=== PATIENT | female | born 1940 | race Two or more races ===

== ENCOUNTER 2021-09-26 21:57 | Inpatient (IN) | payer OTHER ==
[~2021-09-26] VITALS: Ht 160 cm; Wt 78.2 kg
--- NOTE | 2021-09-26 22:02 | NUR ---
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 PATIENT ALERT AND ORIENTED X3. AMBULATORY PLACED ON BED 03 ON NASAL CANNULA 6L SATTING AT 100%.
--- NOTE | 2021-09-26 22:30 | NUR ---
BLOOD COLLECTED AND SENT TO LAB
[2021-09-26 22:38] LABS: BASOPHILS # (AUTO) 0.1 K/uL (0.0-0.2); BASOPHILS % (AUTO) 0.8 % (0.0-2.0); EOSINOPHILS % (AUTO) 0.1 % (0.0-6.0); HEMATOCRIT 40 % (33-45); HEMOGLOBIN 13.2 g/dL (11.5-14.8); LYMPHOCYTES # (AUTO) 2.1 K/uL (0.8-4.8); MEAN CORPUSCULAR HGB CONC 33 g/dl (31.0-36.0); MEAN CORPUSCULAR VOLUME 92 fL (82-100); MONOCYTES # (AUTO) 0.5 K/uL (0.1-1.30); MONOCYTES % (AUTO) 3.8 % (2.0-12.0); NEUTROPHILS # (AUTO) 9.9 K/uL (1.8-8.9); NEUTROPHILS % (AUTO) 78.3 % (43.0-81.0); PLATELET COUNT (AUTO) 192 K/uL (150-450); RED BLOOD CELL COUNT(AUTO) 4.36 MIL/uL (4.0-5.2); WHITE BLOOD COUNT (AUTO) 12.6 K/uL (4.3-11.0)
--- NOTE | 2021-09-26 22:49 | NUR ---
COVID SWAB DONE AND SENT TO LAB
[2021-09-26 23:11] LABS: CALCIUM, SERUM 9.3 mg/dL (8.5-10.1); CARBON DIOXIDE 29 mmol/L (21-32); CHLORIDE 103 mmol/L (98-107); CREATININE 1.1 mg/dL (0.6-1.3); GLUCOSE 194 mg/dL (74-106); POTASSIUM 3.6 mmol/L (3.5-5.1); SODIUM SERUM 143 mmol/L (136-145); UREA NITROGEN, BLOOD 26 mg/dL (7-18)
--- NOTE | 2021-09-26 23:14 | NUR ---
CALLED [facility] AND REQUESTED SNAP SHOT
[2021-09-26 23:23] LABS: ALANINE AMINOTRANSFERASE 234 U/L (12-78); ALBUMIN 3.4 g/dL (3.4-5.0); ALKALINE PHOSPHATASE 82 U/L (46-116); ASPARTATE AMINOTRANSFERASE 249 U/L (15-37); BILIRUBIN,DIRECT 0.2 mg/dL (0.0-0.2); BILIRUBIN,TOTAL 0.4 mg/dL (0.2-1.0); TOTAL PROTEIN, SERUM 6.7 g/dL (6.4-8.2)
[2021-09-26] MEDS ORDERED: LORAZEPAM INJ 2 MG/ML VIAL ONE (23:36)
[2021-09-26] MEDS ORDERED: ASPIRIN 325 MG TABLET ONE (23:36)
--- NOTE | 2021-09-26 23:38 | NUR ---
CALLED PORSCHE CAMACHO. AWAITING FOR HIS CALL BACK
[2021-09-27] VITALS (15 sets, daily range): BP systolic 110–169; BP diastolic 39–87
[2021-09-27] MEDS ORDERED: ASPIRIN 325 MG TABLET PO ONE
[2021-09-27] MEDS ORDERED: LORAZEPAM INJ 2 MG/ML VIAL IV ONE
--- NOTE | 2021-09-27 | NUR ---
DR URIOSTEGUI ON THE PHONE WITH DR DUMONT FROM [facility]
--- NOTE | 2021-09-27 00:50 | NUR ---
PATIENT AT CT
--- NOTE | 2021-09-27 00:54 | NUR ---
paged [facility] doctor for update
--- NOTE | 2021-09-27 01:14 | NUR ---
GAIL PAGED FOR EXPEDITED CTA READ
[2021-09-27] MEDS ORDERED: HEPARIN SODIUM, PORCINE 5000 UNITS/1 ML VIAL ONE (01:21)
[2021-09-27] MEDS ORDERED: HEPARIN INFUSION/D5W 500 ML IV ONE (01:21)
[2021-09-27] MEDS ORDERED: HEPARIN SODIUM, PORCINE 5000 UNITS/1 ML VIAL IV ONE (01:30)
[2021-09-27] MEDS ORDERED: HEPARIN INFUSION/D5W 500 ML IV PRN ×3 (01:30→05:00)
--- NOTE | 2021-09-27 02:11 | NUR ---
DR URIOSTEGUI ON THE PHONE WITH [facility]
--- NOTE | 2021-09-27 03:16 | NUR ---
DR URIOSTEGUI ON THE PHONE WITH PORSCHE PULLIAM FOR UPDATE
--- NOTE | 2021-09-27 03:19 | NUR ---
PER PORSCHE GROVE DR RECOMMENDED TO KEEP THE PT AND ADMMIT HER AT ICU
--- NOTE | 2021-09-27 04:49 | NUR ---
[facility] SWAB COLLECTED AND SENT TO LAB. PATIENT'S BELONGINGS LIST DONE.
[2021-09-27] MEDS ORDERED: MORPHINE SULFATE INJ 2 MG/ML DISP.SYRIN IV PRN (05:00)
[2021-09-27] MEDS ORDERED: Z GUARD REMEDY 4 OZ OINT TP PRN (05:00)
--- NOTE | 2021-09-27 05:05 | NUR ---
RECEIVED CALL FROM JANET MAN, REGARDING HEPARIN DRIP. HE ORDERED TO CHANGE THE HEPARIN DRIP FROM ACI TO NON-ACI. 18UNITS/KG/HR = [id number] ROUNDED TO NEAREST 12=1888 UNITS/HR. VERIFIED WITH JANET AND HE APPROVED OF DOSING. NOTED AND CHANGED RATE ON PUMP
--- NOTE | 2021-09-27 05:20 | NUR ---
PATIENT RESTING COMFORTABLY NO COMPLAINTS AT THIS TIME.
[2021-09-27] MEDS ORDERED: PARO10TA86 PO (05:31)
[2021-09-27] MEDS ORDERED: FAMO20TA8 PO (05:31)
[2021-09-27] MEDS ORDERED: FLUT16SP (07:57)
[2021-09-27] MEDS ORDERED: PRED5TAB PO (07:57)
[2021-09-27] MEDS ORDERED: FOLI0.4T6 PO (07:57)
[2021-09-27] MEDS ORDERED: ACET-868 PO (07:57)
--- NOTE | 2021-09-27 08:18 | NUR ---
PTT GREATER THAN 170
--- NOTE | 2021-09-27 08:43 | NUR ---
room 258
--- NOTE | 2021-09-27 10:07 | NUR ---
MANAGER ANDROID NOTES RECEIVED PATIENT IN BED A/O X3 FROM ED. VITAL SIGNS ARE FOLLOWS: BP 112/78, HR 90, 19 RR, 97% O2 97.9 TEMPERATURE. NO COMPLAINTS OF PAIN AT THIS TIME. HEPARIN INFUSION PAUSED FOR 1 HOUR PER PROTOCOL. WILL BE RESUMED AT 11AM. PATIENT IS ON NASAL CANNULA 2L. WILL CONTINUE TO MONITOR PATIENT.
[2021-09-27] MEDS ORDERED: predniSONE 10 MG TABLET PO SCH (10:30)
[2021-09-27] MEDS ORDERED: FLUTICASONE PROPIONATE 16 GM BOTTLE NS PRN (11:00)
[2021-09-27] MEDS ORDERED: predniSONE 5 MG TABLET PO SCH (11:00)
[2021-09-27] MEDS: PANTOPRAZOLE 40 MG VIAL IV SCH (12:27)
[2021-09-27] MEDS: PAROXETINE HCL 10 MG TABLET PO SCH (12:27)
[2021-09-27] MEDS: FAMOTIDINE (20 MG) 20 MG TABLET PO SCH ×2 (12:28→17:00)
[2021-09-27] MEDS: FOLIC ACID 1 MG TABLET PO SCH (12:28)
--- NOTE | 2021-09-27 19:50 | NUR ---
RN NOTE PATIENT AWAK, ALERT, AND ORIENTED X3. ABLE TO MAKE NEEDS KNOWN. ON O2 2L VIA NASAL CANNULA. O2 SAT WNL. DENIES ANY PAIN AT THIS TIME. IV ACCESS ON LEFT AC #20 AND RIGHT HAND #18, PATENT AND INTACT. ON HEPARIN DRIP @ 950 UNIT/HR, NO S/S OF ANY BLEEDING. BED LOCKED AND IN LOWEST POSITION. CALL LIGHT WITHIN REACH. ALL NEEDS ANTICIPATED.
[2021-09-28] VITALS (21 sets, daily range): BP systolic 118–164; BP diastolic 58–91
--- NOTE | 2021-09-28 02:00 | NUR ---
RN NOTE APPT 63.8, NO CHANGE PER HEPARIN ORDER PROTOCOL. PT HAS NO S/S OF BLEEDING. ASSISTED PATIENT ON BEDPAN, VOIDED X1.
[2021-09-28] MEDS: HEPARIN INFUSION/D5W 500 ML IV PRN (02:03)
[2021-09-28 04:40] LABS: ALANINE AMINOTRANSFERASE 144 U/L (12-78); ALBUMIN 2.9 g/dL (3.4-5.0); ALKALINE PHOSPHATASE 63 U/L (46-116); ASPARTATE AMINOTRANSFERASE 55 U/L (15-37); BILIRUBIN,DIRECT 0.1 mg/dL (0.0-0.2); BILIRUBIN,TOTAL 0.4 mg/dL (0.2-1.0); CALCIUM, SERUM 8.5 mg/dL (8.5-10.1); CARBON DIOXIDE 31 mmol/L (21-32); CHLORIDE 104 mmol/L (98-107); CREATININE 0.8 mg/dL (0.6-1.3); GLUCOSE 119 mg/dL (74-106); MAGNESIUM 2.1 mg/dL (1.8-2.4); PHOSPHORUS 4.2 mg/dL (2.5-4.9); POTASSIUM 3.8 mmol/L (3.5-5.1); SODIUM SERUM 141 mmol/L (136-145); TOTAL PROTEIN, SERUM 5.9 g/dL (6.4-8.2); UREA NITROGEN, BLOOD 22 mg/dL (7-18)
[2021-09-28 04:55] LABS: BASOPHILS % (AUTO) 0.3 % (0.0-2.0); EOSINOPHILS % (AUTO) 0.2 % (0.0-6.0); HEMATOCRIT 36 % (33-45); HEMOGLOBIN 11.9 g/dL (11.5-14.8); LYMPHOCYTES # (AUTO) 1.2 K/uL (0.8-4.8); LYMPHOCYTES % (AUTO) 14.9 % (20.0-44.0); MEAN CORPUSCULAR HGB CONC 33 g/dl (31.0-36.0); MEAN CORPUSCULAR VOLUME 92 fL (82-100); MONOCYTES # (AUTO) 0.5 K/uL (0.1-1.30); MONOCYTES % (AUTO) 5.5 % (2.0-12.0); NEUTROPHILS # (AUTO) 6.5 K/uL (1.8-8.9); NEUTROPHILS % (AUTO) 79.1 % (43.0-81.0); PLATELET COUNT (AUTO) 160 K/uL (150-450); RED BLOOD CELL COUNT(AUTO) 3.89 MIL/uL (4.0-5.2); WHITE BLOOD COUNT (AUTO) 8.3 K/uL (4.3-11.0)
--- NOTE | 2021-09-28 06:43 | NUR ---
RN NOTE PATIENT RESTING IN BED. ON O2 2L VIA NASAL CANNULA. O2 SAT 97%. IV ACCESS ON LEFT AC #20 AND RIGHT HAND #20, PATENT AND INTACT. ON HEPARIN DRIP @ 950 UNIT/HR, NO S/S OF ANY BLEEDING. ALL NEEDS ATTENDED PROMPTLY. BED LOCKED AND IN LOWEST POSITION. CALL LIGHT WITHIN REACH. WILL ENDORSE TO AM SHIFT.
--- NOTE | 2021-09-28 07:24 | NUR ---
RN OPENING NOTE RECEIVED PT IN BED ASLEEP, PT IS ALERT, AND ORIENTED X3. ABLE TO MAKE NEEDS KNOWN. ON O2 2L VIA NASAL CANNULA. O2 SAT WNL. NO S/S OF RESP DISTRESS AND NO C/O PAIN AT THIS TIME. IV ACCESS ON LEFT AC #20 AND RIGHT HAND #20, PATENT AND INTACT. ON HEPARIN DRIP @ 950 UNIT/HR, NO S/S OF ANY BLEEDING. SAFETY MEASURES IN PLACE. BED LOCKED AND IN LOWEST POSITION. SR UP X3, CALL LIGHT WITHIN REACH. WILL CONTINUE TO MONITOR THROUGHOUT SHIFT.
[2021-09-28] MEDS: PANTOPRAZOLE 40 MG VIAL IV SCH (08:11)
[2021-09-28] MEDS: PAROXETINE HCL 10 MG TABLET PO SCH (08:11)
[2021-09-28] MEDS: FAMOTIDINE (20 MG) 20 MG TABLET PO SCH ×2 (08:12→16:18)
[2021-09-28] MEDS: predniSONE 5 MG TABLET PO SCH (08:12)
[2021-09-28] MEDS: FOLIC ACID 1 MG TABLET PO SCH (08:12)
--- NOTE | 2021-09-28 10:15 | NUR ---
RN NOTES APTT = 66.4 AT 1000. NO CHANGE IN HEPARIN DRIP. WILL CONTINUE AT 950 U/HR.
--- NOTE | 2021-09-28 10:24 | NUR ---
RN NOTES ORDER FOR APTT PUT IN FOR 0700 ON 09/29/21.
--- NOTE | 2021-09-28 18:18 | NUR ---
RN NOTES REPORT GIVEN TO GUILLERMINA DUNNE IN [facility].
--- NOTE | 2021-09-28 19:33 | NUR ---
RN OPENING NOTE RECEIVED PT IN BED AWAKE PT IS ALERT, AND ORIENTED X3. ABLE TO MAKE NEEDS KNOWN. ON O2 2L VIA NASAL CANNULA. O2 SAT WNL. NO S/S OF RESP DISTRESS AND NO C/O PAIN AT THIS TIME. IV ACCESS ON LEFT AC #20 RUNNING HEPARIN DRIP @950ML/HR NO BLEEDING NOTED. PT EDUCATED ON HEPARIN DRIP AND RISK FOR BLEEDING. PT REMINDED THAT NO LAB DRAW SHOULD BE DONE ON THAT ARM. IV ACCESS ALSO ON THE RIGHT HAND #20, PATENT AND INTACT.SAFETY MEASURES IN PLACE. BED LOCKED AND IN LOWEST POSITION. SR UP X3, CALL LIGHT WITHIN REACH. WILL CONTINUE TO MONITOR.
[2021-09-29] VITALS (7 sets, daily range): BP systolic 132–155; BP diastolic 85–96
[2021-09-29] MEDS: HEPARIN INFUSION/D5W 500 ML IV PRN (01:06)
[2021-09-29 06:31] LABS: BASOPHILS % (AUTO) 0.7 % (0.0-2.0); EOSINOPHILS % (AUTO) 1.5 % (0.0-6.0); HEMATOCRIT 37 % (33-45); HEMOGLOBIN 12.4 g/dL (11.5-14.8); LYMPHOCYTES # (AUTO) 1.2 K/uL (0.8-4.8); LYMPHOCYTES % (AUTO) 17.5 % (20.0-44.0); MEAN CORPUSCULAR HGB CONC 34 g/dl (31.0-36.0); MEAN CORPUSCULAR VOLUME 91 fL (82-100); MONOCYTES # (AUTO) 0.4 K/uL (0.1-1.30); MONOCYTES % (AUTO) 5.6 % (2.0-12.0); NEUTROPHILS # (AUTO) 4.9 K/uL (1.8-8.9); NEUTROPHILS % (AUTO) 74.7 % (43.0-81.0); PLATELET COUNT (AUTO) 167 K/uL (150-450); RED BLOOD CELL COUNT(AUTO) 4.04 MIL/uL (4.0-5.2); WHITE BLOOD COUNT (AUTO) 6.6 K/uL (4.3-11.0)
--- NOTE | 2021-09-29 06:38 | NUR ---
RN CLOSING NOTE PT IN BED AWAKE PT IS ALERT, AND ORIENTED X3. ABLE TO MAKE NEEDS KNOWN. ON O2 2L VIA NASAL CANNULA. O2 SAT WNL. NO S/S OF RESP DISTRESS AND NO C/O PAIN AT THIS TIME. IV ACCESS ON LEFT AC #20 RUNNING HEPARIN DRIP @950ML/HR NO BLEEDING NOTED. PT EDUCATED ON HEPARIN DRIP AND RISK FOR BLEEDING. PT REMINDED THAT NO LAB DRAW SHOULD BE DONE ON THAT ARM. IV ACCESS ALSO ON THE RIGHT HAND #20, PATENT AND INTACT.SAFETY MEASURES IN PLACE. BED LOCKED AND IN LOWEST POSITION. SR UP X3, CALL LIGHT WITHIN REACH. WILL ENDORSE CARE TO DAY SHIFT NURSE.
[2021-09-29 07:09] LABS: BILIRUBIN,TOTAL 0.7 mg/dL (0.2-1.0); CALCIUM, SERUM 8.5 mg/dL (8.5-10.1); CREATININE 0.6 mg/dL (0.6-1.3); POTASSIUM 3.4 mmol/L (3.5-5.1); TOTAL PROTEIN, SERUM 5.9 g/dL (6.4-8.2)
[2021-09-29] MEDS ORDERED: PANTOPRAZOLE 40 MG TABLET.DR PO SCH (07:30)
--- NOTE | 2021-09-29 07:30 | NUR ---
RN OPENING NOTES PATIENT AWAKE, A/O X3. NO S/S OF PAIN NOTED AT THIS TIME. PATIENT ON 2L OXYGEN VIA NC, NO DISTRESS OR SHORTNESS OF BREATH. IV ACCESS RAC #22G, INTACT, PATENT AND FLUSHING WELL. 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 AND HR OF 90. FALL AND SAFETY MEASURES IN PLACE, BED ALARM ON, BED IN LOW AND LOCK POSITION, CALL LIGHT AND TABLE WITHIN EASY REACH, SIDE RAILS UP X2. WILL CONTINUE TO MONITOR.
--- NOTE | 2021-09-29 08:14 | NUR ---
RN NOTE LAB CALLED WITH TROPONIN LEVEL OF 54. PERVIOUS TROPONIN WAS 286. DR. COOPER WAS INFORMED. WILL CONTINUE TO MONITOR.
[2021-09-29] MEDS: FOLIC ACID 1 MG TABLET PO SCH (08:54)
[2021-09-29] MEDS: FAMOTIDINE (20 MG) 20 MG TABLET PO SCH (08:54)
[2021-09-29] MEDS: predniSONE 5 MG TABLET PO SCH (08:54)
[2021-09-29] MEDS: PAROXETINE HCL 10 MG TABLET PO SCH (08:55)
[2021-09-29] MEDS ORDERED: POTASSIUM CHLORIDE 20 MEQ POWDER PACKET NG SCH (11:30)
[2021-09-29] MEDS ORDERED: APIXABAN 5 MG TABLET PO SCH (12:00)
--- NOTE | 2021-09-29 15:00 | NUR ---
MAP MOUNTER NOTE PATIENT DISCHARGE IN MEDICAL STABLE CONDITION. A/O 3-4. V/S TAKEN, STABLE AND RECORDED. IV ON LAC#20 AND R HAND #20G. SKIN ASSESSMENT DONE, SKIN INTACT. NAME ARM BAND REMOVED. ALL BELONGINGS CHECKED AND SIGNED. HEALTH TEACHING AND DISCHARGE INSTRUCTIONS GIVEN TO PATIENT AND VERBALIZED UNDERSTANDING. DISCHARGE INSTRUCTIONS ALSO GIVEN TO PARAMEDICS. PATIENT LEFT UNIT VIA GURNEY WITH NO SIGNS OF DISTRESS, ACCOMPANIED BY PARAMEDICS. PATIENT WAS TRANSFERRED TO [facility]. REPORT WAS GIVEN TO NURSE ARYA BAINS AT [facility] VIA TELEPHONE. CHARGE NURSE AWARE OF DISCHARGE.
[2021-09-30] MEDS ORDERED: APIX5TAB PO (10:00)
== END 2021-09-29 14:59 | disposition short-term general hospital (02) | DRG 175 ==
LOC: ER 21:59 → TRANSITION 09-27 04:49 → ICU 09-27 08:51 → TELE 09-28 19:16
PROVIDERS: ADMIT Nurse Practitioner Acute Care; ATTEND Family Medicine
DX: I26.94 Multiple subsegmental thrombotic pulmonary emboli without acute cor pulmonale (principal); I21.A1 Myocardial infarction type 2; K72.00 Acute and subacute hepatic failure without coma; D68.59 Other primary thrombophilia; E44.0 Moderate protein-calorie malnutrition; I82.811 Embolism and thrombosis of superficial veins of right lower extremity; M19.90 Unspecified osteoarthritis, unspecified site; F41.9 Anxiety disorder, unspecified; E66.9 Obesity, unspecified; M31.6 Other giant cell arteritis; E88.09 Other disorders of plasma-protein metabolism, not elsewhere classified; R74.01 Elevation of levels of liver transaminase levels; R91.8 Other nonspecific abnormal finding of lung field; Z20.822 Contact with and (suspected) exposure to COVID-19; E87.6 Hypokalemia; Z68.30 Body mass index [BMI] 30.0-30.9, adult
CPT/HCPCS: 36415; 71045-TC; 80048-TC; 80053-TC; 80076-TC; 83735-TC; 83880; 84100-TC; 84484-TC; 85025-TC; 85730-TC; 87081-TC; 93307-TC; 93970-TC; C9113; C9803; G0378; J1644; J2060; J2270; J7512